=== PATIENT | male | born 1970 | race African-American/Black ===

== ENCOUNTER 2021-07-10 02:47 | Observation (INO) ==
[2021-07-10] MEDS ORDERED: ALUM/MAG/SIMETH/LIDO VISC 1:1 30 ML BOTTLE PO STA (03:02)
[2021-07-10] MEDS ORDERED: SODIUM CHLORIDE 0.9% 1,000 ML IV STA (03:02)
[2021-07-10] MEDS ORDERED: ONDANSETRON 4 MG/2 ML VIAL IV STA (03:02)
[2021-07-10] MEDS ORDERED: PANTOPRAZOLE 40 MG VIAL IV STA (03:02)
[2021-07-10 03:58] LABS: Basophils % 0.4 % (0.0-0.8); Eosinophils # 0.3 10*3/uL (0.0-0.87); Eosinophils % 6.4 % (0.00-10.9); Hematocrit 41.8 VOL% (42.0-52.0); Hemoglobin 13.9 GM/DL (14.0-18.0); Lymphocytes % 42.9 % (21.2-54.2); Mean Corpuscular HGB Conc 33.3 GM/DL (32-36); Mean Corpuscular Volume 88.4 FL (87-102); Monocytes # 0.2 10*3/uL (0.11-0.8); Monocytes % 5.1 % (1.7-12.7); Neutrophils % 45.2 % (38.7-73.9); Platelet Count 130 T/CUMM (130-400); Red Blood Count 4.73 MC/CUMM (3.8-5.5); Red Cell Distribution Width 16.2 % (9.3-17.3); White Blood Count 4.7 T/CUMM (4-12)
[2021-07-10 04:44] LABS: Bacteria,Urine Occasional /HPF (Few); RBC,Urine 1 /HPF (0-4)
[2021-07-10 04:45] LABS: Bilirubin,Urine Negative (Negative); Blood, Urine Trace mg/dL (Negative); Glucose,Urine (UA) Negative (Negative); Ketones,Urine Negative (Negative); Nitrite,Urine Negative (Negative); Protein,Urine Negative (Negative); Urine Appearance Clear (Clear); Urine Color Yellow (Yellow); Urine Urobilinogen 0.2 eU/dL (<2.0); Urine pH 5.5 (4.5-8.0)
[2021-07-10 05:15] LABS: Alanine Aminotransferase 40 U/L (16-61); Albumin 3.7 G/DL (3.4-5.0); Alkaline Phosphatase 112 U/L (45-117); Amylase 120 U/L (25-115); Aspartate Amino Transferase 79 U/L (0-37); Bilirubin,Total < 0.39 MG/DL (0.20-1.00); Blood Urea Nitrogen 7 MG/DL (7-18); Carbon Dioxide 30 MMOL/L (21-32); Chloride 110 MMOL/L (98-107); Estimated Glom Filtration Rate 135 ML/MIN; Glucose 96 MG/DL (74-106); Osmolality,Calculated 285.7 MOS/KG (273-304); Potassium 4.5 MMOL/L (3.5-5.1); Sodium 145 MMOL/L (136-145); Total Protein 8.1 G/DL (6.4-8.2)
[2021-07-10] MEDS ORDERED: DEXTROSE 10% 250 ML BAG IV PRN (05:46)
[2021-07-10] MEDS ORDERED: GLUCAGON 1 MG VIAL IM PRN (05:46)
[2021-07-10] MEDS ORDERED: LORazepam 2 MG/1 ML VIAL IV PRN (05:51)
[2021-07-10] MEDS: CLINDAMYCIN 300 MG CAPSULE PO SCH ×4 (06:03→23:50)
[2021-07-10] MEDS: LACTATED RINGERS 1,000 ML IV SCH ×3 (06:26→23:50)
[2021-07-10 06:27] LABS: Barbiturates Screen,Urine Negative (Negative); Benzodiazepines Screen,Urine Negative (Negative); Cannabinoid Screen,Urine Negative (Negative); Opiate Screen,Urine Negative (Negative); Phencyclidine Screen,Urine Negative (Negative)
[2021-07-10] MEDS: THIAMINE 100 MG TABLET PO SCH (09:27)
[2021-07-10] MEDS: FOLIC ACID 1 MG TABLET PO SCH (09:27)
[2021-07-10] MEDS ORDERED: MAGNESIUM CITRATE 300 ML BOTTLE PO ONE (10:30)
[2021-07-10] MEDS: ENOXAPARIN 40 MG/0.4 ML SYRINGE SUBCUT SCH (20:35)
[2021-07-10] MEDS: ONDANSETRON 4 MG/2 ML VIAL IV PRN (22:17)
[2021-07-11] MEDS: ACETAMINOPHEN 325 MG TABLET PO PRN ×2 (04:31→21:46)
[2021-07-11 05:17] LABS: Basophils % 0.4 % (0.0-0.8); Eosinophils % 1.5 % (0.00-10.9); Hematocrit 34.2 VOL% (42.0-52.0); Hemoglobin 11.3 GM/DL (14.0-18.0); Lymphocytes # 0.8 10*3/uL (1.4-4.0); Lymphocytes % 30.2 % (21.2-54.2); Mean Corpuscular Volume 88.1 FL (87-102); Mean Platelet Volume 10.9 FL (9.6-12.0); Monocytes # 0.3 10*3/uL (0.11-0.8); Monocytes % 9.8 % (1.7-12.7); Neutrophils % 58.1 % (38.7-73.9); Platelet Count 100 T/CUMM (130-400); Red Blood Count 3.88 MC/CUMM (3.8-5.5); Red Cell Distribution Width 15.8 % (9.3-17.3); White Blood Count 2.8 T/CUMM (4-12)
[2021-07-11] MEDS: CLINDAMYCIN 300 MG CAPSULE PO SCH ×3 (05:55→17:26)
[2021-07-11] MEDS: ONDANSETRON 4 MG/2 ML VIAL IV PRN ×2 (05:56→12:00)
[2021-07-11] MEDS: LACTATED RINGERS 1,000 ML IV SCH ×3 (05:58→21:03)
[2021-07-11 05:59] LABS: Calcium 8.7 MG/DL (8.5-10.1); Osmolality,Calculated 277.3 MOS/KG (273-304); Potassium 3.9 MMOL/L (3.5-5.1); Risk Ratio 1.55
[2021-07-11] MEDS ORDERED: PANTOPRAZOLE 40 MG VIAL IV SCH (09:00)
[2021-07-11] MEDS: hydrALAZINE 20 MG/1 ML VIAL IV PRN ×2 (09:12→18:01)
[2021-07-11] MEDS: FOLIC ACID 1 MG TABLET PO SCH (09:13)
[2021-07-11] MEDS: amLODIPine 5 MG TABLET PO SCH (09:14)
[2021-07-11] MEDS: THIAMINE 100 MG TABLET PO SCH (09:14)
[2021-07-11] MEDS ORDERED: PROMETHAZINE 25 MG/1 ML VIAL IM ONE (14:32)
[2021-07-11] MEDS ORDERED: PROMETHAZINE 25 MG/1 ML VIAL IM PRN (14:49)
[2021-07-11] MEDS: ENOXAPARIN 40 MG/0.4 ML SYRINGE SUBCUT SCH (21:04)
[2021-07-12] MEDS: CLINDAMYCIN 300 MG CAPSULE PO SCH ×3 (01:10→12:16)
[2021-07-12] MEDS: LACTATED RINGERS 1,000 ML IV SCH ×2 (03:44→10:37)
[2021-07-12 05:10] LABS: Basophils % 0.3 % (0.0-0.8); Eosinophils # 0.1 10*3/uL (0.0-0.87); Eosinophils % 3.9 % (0.00-10.9); Hematocrit 34.5 VOL% (42.0-52.0); Hemoglobin 11.3 GM/DL (14.0-18.0); Immature Granulocytes % 0.3 %; Immature Granulocytes Absolute 0.01 #; Lymphocytes # 1.2 10*3/uL (1.4-4.0); Lymphocytes % 33.8 % (21.2-54.2); Mean Corpuscular HGB Conc 32.8 GM/DL (32-36); Mean Corpuscular Volume 89.4 FL (87-102); Mean Platelet Volume 11.5 FL (9.6-12.0); Monocytes # 0.4 10*3/uL (0.11-0.8); Monocytes % 9.8 % (1.7-12.7); Neutrophils % 51.9 % (38.7-73.9); Platelet Count 89 T/CUMM (130-400); Red Blood Count 3.86 MC/CUMM (3.8-5.5); Red Cell Distribution Width 15.8 % (9.3-17.3); White Blood Count 3.6 T/CUMM (4-12)
[2021-07-12 05:25] LABS: Calcium 8.2 MG/DL (8.5-10.1); Osmolality,Calculated 272.5 MOS/KG (273-304); Potassium 3.6 MMOL/L (3.5-5.1)
[2021-07-12 06:05] LABS: Platelet Estimate Decreased; Target Cells 1+
[2021-07-12] MEDS ORDERED: PANTOPRAZOLE 40 MG TABLET PO SCH (06:30)
[2021-07-12] MEDS: amLODIPine 5 MG TABLET PO SCH (09:23)
[2021-07-12] MEDS: FOLIC ACID 1 MG TABLET PO SCH (09:24)
[2021-07-12] MEDS: THIAMINE 100 MG TABLET PO SCH (09:24)
[2021-07-12] MEDS: ONDANSETRON 4 MG/2 ML VIAL IV PRN (10:32)
[2021-07-12 12:12] VITALS: BP 188/87
== END 2021-07-12 12:26 | disposition home or self-care (01) ==
LOC: SUATTDRO → N.ED 02:47 → N.EDINP 02:47 → N.5E 12:02
PROVIDERS: ADMIT Internal Medicine Geriatric Medicine; ATTEND Internal Medicine Geriatric Medicine

== ENCOUNTER 2021-07-21 13:40 | Inpatient (IN) ==
[2021-07-21] MEDS ORDERED: ALUM/MAG/SIMETH/LIDO VISC 1:1 30 ML BOTTLE PO STA (14:10)
[2021-07-21 15:04] LABS: Basophils % 0.5 % (0.0-0.8); Eosinophils % 0.5 % (0.00-10.9); Hematocrit 33.7 VOL% (42.0-52.0); Hemoglobin 11.2 GM/DL (14.0-18.0); Immature Granulocytes % 0.3 %; Immature Granulocytes Absolute 0.01 #; Lymphocytes % 25.6 % (21.2-54.2); Mean Corpuscular HGB Conc 33.2 GM/DL (32-36); Mean Corpuscular Volume 87.5 FL (87-102); Monocytes # 0.3 10*3/uL (0.11-0.8); Monocytes % 8.6 % (1.7-12.7); Neutrophils % 64.5 % (38.7-73.9); Platelet Count 85 T/CUMM (130-400); Red Blood Count 3.85 MC/CUMM (3.8-5.5); Red Cell Distribution Width 15.3 % (9.3-17.3); White Blood Count 3.8 T/CUMM (4-12)
[2021-07-21 15:35] LABS: Calcium 7.8 MG/DL (8.5-10.1); Osmolality,Calculated 283.4 MOS/KG (273-304); Potassium 3.8 MMOL/L (3.5-5.1)
[2021-07-21 15:44] LABS: Anisocytosis 1+; Hypochromia 2+
[2021-07-21 15:45] LABS: Ovalocytes Slight; Target Cells Few
[2021-07-21 15:46] LABS: Platelet Estimate Decreased
[2021-07-21] MEDS ORDERED: SODIUM CHLORIDE 0.9% 1,000 ML IV STA (15:50)
[2021-07-21] MEDS ORDERED: GLUCAGON 1 MG VIAL IM PRN (16:38)
[2021-07-21] MEDS ORDERED: LORazepam 2 MG/1 ML VIAL IV PRN (16:38)
[2021-07-21 16:41] LABS: Barbiturates Screen,Urine Negative (Negative); Benzodiazepines Screen,Urine Negative (Negative); Cannabinoid Screen,Urine Negative (Negative); Opiate Screen,Urine Negative (Negative); Phencyclidine Screen,Urine Negative (Negative)
[2021-07-21] MEDS ORDERED: hydrALAZINE 20 MG/1 ML VIAL IV PRN (16:52)
[2021-07-21] MEDS ORDERED: DEXTROSE 10% 250 ML BAG IV PRN (16:54)
[2021-07-21] MEDS ORDERED: FOLIC ACID IV SCH ×2 (17:00→18:00)
[2021-07-21] MEDS ORDERED: THIAMINE IV SCH ×2 (17:00→18:00)
[2021-07-21] MEDS ORDERED: MULTIVITAMIN IV SCH ×2 (17:00→18:00)
[2021-07-21] MEDS ORDERED: [UNRECOGNIZED DRUG - OTHER] IV SCH (17:00)
[2021-07-21] MEDS: PANTOPRAZOLE 40 MG VIAL IV SCH (17:50)
[2021-07-21] MEDS: NICOTINE 21 MG/24 HR PATCH TRANSDERM SCH (17:57)
[2021-07-21] MEDS: SODIUM CHLORIDE 0.9% 1,000 ML IV SCH (17:58)
[2021-07-21] MEDS ORDERED: [UNRECOGNIZED DRUG - OTHER] IV SCH (18:00)
[2021-07-21] MEDS: MORPHINE 2 MG/1 ML SYRINGE IV PRN (20:50)
[2021-07-22] MEDS: ONDANSETRON 4 MG/2 ML VIAL IV PRN ×3 (01:21→21:10)
[2021-07-22 06:22] LABS: Eosinophils % 0.9 % (0.00-10.9); Hematocrit 33.1 VOL% (42.0-52.0); Hemoglobin 10.9 GM/DL (14.0-18.0); Immature Granulocytes % 0.5 %; Immature Granulocytes Absolute 0.01 #; Lymphocytes # 0.7 10*3/uL (1.4-4.0); Lymphocytes % 32.6 % (21.2-54.2); Mean Corpuscular HGB Conc 32.9 GM/DL (32-36); Mean Corpuscular Volume 88.7 FL (87-102); Mean Platelet Volume 11.2 FL (9.6-12.0); Monocytes # 0.2 10*3/uL (0.11-0.8); Monocytes % 10.9 % (1.7-12.7); Neutrophils % 55.1 % (38.7-73.9); Platelet Count 63 T/CUMM (130-400); Red Blood Count 3.73 MC/CUMM (3.8-5.5); Red Cell Distribution Width 15.3 % (9.3-17.3); White Blood Count 2.2 T/CUMM (4-12)
[2021-07-22 06:39] LABS: Bilirubin,Total 0.6 MG/DL (0.20-1.00); Calcium 8.3 MG/DL (8.5-10.1); Osmolality,Calculated 275.4 MOS/KG (273-304); Potassium 4.2 MMOL/L (3.5-5.1); Total Protein 7.2 G/DL (6.4-8.2)
[2021-07-22 06:44] LABS: Platelet Estimate Decreased
[2021-07-22] MEDS ORDERED: SODIUM CHLORIDE 0.9% 1,000 ML IV ONE (08:37)
[2021-07-22] MEDS ORDERED: amLODIPine 5 MG TABLET PO SCH (09:00)
[2021-07-22] MEDS: FOLIC ACID 1 MG TABLET PO SCH (09:10)
[2021-07-22] MEDS: THIAMINE 100 MG TABLET PO SCH (09:10)
[2021-07-22] MEDS: PANTOPRAZOLE 40 MG VIAL IV SCH (09:11)
[2021-07-22] MEDS: MORPHINE 2 MG/1 ML SYRINGE IV PRN (09:12)
[2021-07-22] MEDS: NICOTINE 21 MG/24 HR PATCH TRANSDERM SCH (09:12)
[2021-07-22] MEDS: MULTIVITAMIN (CENTRUM) TABLET PO SCH (16:51)
[2021-07-22] MEDS: chlordiazePOXIDE 25 MG CAPSULE PO SCH ×3 (17:59→21:11)
[2021-07-22] MEDS: SODIUM CHLORIDE 0.9% 1,000 ML IV SCH ×2 (18:00→21:12)
[2021-07-23 05:32] LABS: Basophils % 0.4 % (0.0-0.8); Eosinophils # 0.1 10*3/uL (0.0-0.87); Eosinophils % 3.5 % (0.00-10.9); Hematocrit 35.7 VOL% (42.0-52.0); Hemoglobin 11.8 GM/DL (14.0-18.0); Lymphocytes # 0.7 10*3/uL (1.4-4.0); Lymphocytes % 27.3 % (21.2-54.2); Mean Corpuscular HGB Conc 33.1 GM/DL (32-36); Mean Corpuscular Volume 88.1 FL (87-102); Mean Platelet Volume 11.4 FL (9.6-12.0); Monocytes # 0.2 10*3/uL (0.11-0.8); Monocytes % 9.4 % (1.7-12.7); Neutrophils % 59.4 % (38.7-73.9); Platelet Count 54 T/CUMM (130-400); Red Blood Count 4.05 MC/CUMM (3.8-5.5); Red Cell Distribution Width 15.1 % (9.3-17.3); White Blood Count 2.6 T/CUMM (4-12)
[2021-07-23] MEDS: SODIUM CHLORIDE 0.9% 1,000 ML IV SCH ×3 (05:38→15:31)
[2021-07-23 06:01] LABS: Albumin 3.1 G/DL (3.4-5.0); Bilirubin,Total 0.9 MG/DL (0.20-1.00); Calcium 8.8 MG/DL (8.5-10.1); Osmolality,Calculated 273.5 MOS/KG (273-304)
[2021-07-23] MEDS: POTASSIUM CHLORIDE RIDER 10 MEQ/100 ML PREMIX IV SCH ×4 (09:17→15:28)
[2021-07-23] MEDS: MULTIVITAMIN (CENTRUM) TABLET PO SCH (09:20)
[2021-07-23] MEDS: chlordiazePOXIDE 25 MG CAPSULE PO SCH ×3 (09:20→21:18)
[2021-07-23] MEDS: FOLIC ACID 1 MG TABLET PO SCH (09:21)
[2021-07-23] MEDS: amLODIPine 10 MG TABLET PO SCH (09:21)
[2021-07-23] MEDS: THIAMINE 100 MG TABLET PO SCH (09:21)
[2021-07-23] MEDS: NICOTINE 21 MG/24 HR PATCH TRANSDERM SCH (09:27)
[2021-07-23] MEDS ORDERED: POTASSIUM CHLORIDE RIDER 10 MEQ/100 ML PREMIX IV SCH (15:00)
[2021-07-23 15:51] LABS: % CD4 (T Cells) 39 % (32-64); % CD8 (T Cells) 48 % (11-40); 4/8 Ratio 0.8 (>=0.9)
[2021-07-23] MEDS: MORPHINE 2 MG/1 ML SYRINGE IV PRN (23:23)
[2021-07-24] MEDS: SODIUM CHLORIDE 0.9% 1,000 ML IV SCH ×2 (00:45→10:16)
[2021-07-24 05:47] LABS: Basophils % 0.3 % (0.0-0.8); Eosinophils # 0.1 10*3/uL (0.0-0.87); Hematocrit 39.1 VOL% (42.0-52.0); Immature Granulocytes % 0.3 %; Immature Granulocytes Absolute 0.01 #; Lymphocytes # 1.2 10*3/uL (1.4-4.0); Lymphocytes % 39.3 % (21.2-54.2); Mean Corpuscular HGB Conc 33.2 GM/DL (32-36); Mean Corpuscular Volume 87.9 FL (87-102); Mean Platelet Volume 9.7 FL (9.6-12.0); Monocytes # 0.3 10*3/uL (0.11-0.8); Monocytes % 8.3 % (1.7-12.7); Neutrophils % 48.8 % (38.7-73.9); Platelet Count 54 T/CUMM (130-400); Red Blood Count 4.45 MC/CUMM (3.8-5.5); Red Cell Distribution Width 14.6 % (9.3-17.3)
[2021-07-24 06:01] LABS: Albumin 3.1 G/DL (3.4-5.0); Bilirubin,Total 0.8 MG/DL (0.20-1.00); Calcium 8.5 MG/DL (8.5-10.1); Osmolality,Calculated 271.7 MOS/KG (273-304); Potassium 3.3 MMOL/L (3.5-5.1); Total Protein 7.4 G/DL (6.4-8.2)
[2021-07-24 06:03] LABS: Target Cells Slight
[2021-07-24 06:04] LABS: Microcytosis Slight
[2021-07-24 06:06] LABS: Ovalocytes Slight; Platelet Estimate Decreased
[2021-07-24] MEDS ORDERED: MAGNESIUM SULF RIDER 2 GM/50 ML PREMIX IV PRN (07:32)
[2021-07-24] MEDS ORDERED: MAGNESIUM SULF RIDER 4 GM/100 ML PREMIX IV PRN (07:32)
[2021-07-24] MEDS ORDERED: POTASSIUM CHLORIDE RIDER 10 MEQ/100 ML PREMIX IV PRN (07:32)
[2021-07-24] MEDS: MORPHINE 2 MG/1 ML SYRINGE IV PRN (10:12)
[2021-07-24] MEDS: THIAMINE 100 MG TABLET PO SCH (13:07)
[2021-07-24] MEDS: MULTIVITAMIN (CENTRUM) TABLET PO SCH (13:08)
[2021-07-24] MEDS: FOLIC ACID 1 MG TABLET PO SCH (13:08)
[2021-07-24 13:30] VITALS: BP 147/103
[2021-07-24] MEDS: NICOTINE 21 MG/24 HR PATCH TRANSDERM SCH (13:59)
[2021-07-24] MEDS: chlordiazePOXIDE 25 MG CAPSULE PO SCH (13:59)
[2021-07-24] MEDS: amLODIPine 10 MG TABLET PO SCH (14:00)
== END 2021-07-24 14:27 | disposition home or self-care (01) | DRG 439 ==
LOC: N.ED 13:40 → N.EDINP 13:40 → N.5E 17:20 → SUATTDRO 07-22 15:57
PROVIDERS: ADMIT Internal Medicine; ATTEND Internal Medicine

== ENCOUNTER 2021-08-03 16:39 | Inpatient (IN) ==
[2021-08-03] MEDS ORDERED: SODIUM CHLORIDE 0.9% 1,000 ML IV STA (17:05)
[2021-08-03] MEDS ORDERED: PANTOPRAZOLE 40 MG VIAL IV STA (17:05)
[2021-08-03] MEDS ORDERED: ONDANSETRON 4 MG/2 ML VIAL IV STA (17:05)
[2021-08-03 18:02] LABS: Basophils # 0.1 10*3/uL (0.0-0.2); Basophils % 1.1 % (0.0-0.8); Eosinophils # 0.1 10*3/uL (0.0-0.87); Eosinophils % 2.2 % (0.00-10.9); Hematocrit 38.7 VOL% (42.0-52.0); Hemoglobin 12.4 GM/DL (14.0-18.0); Immature Granulocytes % 0.2 %; Immature Granulocytes Absolute 0.01 #; Lymphocytes % 44.1 % (21.2-54.2); Mean Corpuscular Volume 92.6 FL (87-102); Mean Platelet Volume 8.6 FL (9.6-12.0); Monocytes # 0.3 10*3/uL (0.11-0.8); Monocytes % 6.9 % (1.7-12.7); Neutrophils % 45.5 % (38.7-73.9); Platelet Count 296 T/CUMM (130-400); Red Blood Count 4.18 MC/CUMM (3.8-5.5); Red Cell Distribution Width 16.2 % (9.3-17.3); White Blood Count 4.6 T/CUMM (4-12)
[2021-08-03 18:11] LABS: Albumin 3.8 G/DL (3.4-5.0); Bilirubin,Total 0.4 MG/DL (0.20-1.00); Osmolality,Calculated 280.3 MOS/KG (273-304); Potassium 4.7 MMOL/L (3.5-5.1); Total Protein 8.1 G/DL (6.4-8.2)
[2021-08-03] MEDS ORDERED: hydrALAZINE 20 MG/1 ML VIAL IV PRN (20:14)
[2021-08-03] MEDS ORDERED: GLUCAGON 1 MG VIAL IM PRN (20:14)
[2021-08-03] MEDS ORDERED: NICOTINE 21 MG/24 HR PATCH TRANSDERM PRN (20:14)
[2021-08-03] MEDS ORDERED: LORazepam 2 MG/1 ML VIAL IV PRN (20:16)
[2021-08-03] MEDS ORDERED: DEXTROSE 10% 250 ML BAG IV PRN (20:19)
[2021-08-03 21:10] LABS: % Iron Saturation 7.8 % (18-50)
[2021-08-03 21:16] LABS: Folate 21.26 NG/ML (5.38-24.0)
[2021-08-03] MEDS: PANTOPRAZOLE 40 MG VIAL IV SCH (22:38)
[2021-08-03] MEDS: ENOXAPARIN 40 MG/0.4 ML SYRINGE SUBCUT SCH (22:40)
[2021-08-03] MEDS: LACTATED RINGERS 1,000 ML IV SCH (23:10)
[2021-08-03] MEDS: MORPHINE 2 MG/1 ML SYRINGE IV PRN (23:16)
[2021-08-04 05:50] LABS: Basophils # 0.1 10*3/uL (0.0-0.2); Basophils % 1.5 % (0.0-0.8); Eosinophils # 0.1 10*3/uL (0.0-0.87); Eosinophils % 1.9 % (0.00-10.9); Hematocrit 37.5 VOL% (42.0-52.0); Hemoglobin 12.1 GM/DL (14.0-18.0); Immature Granulocytes % 0.2 %; Immature Granulocytes Absolute 0.01 #; Lymphocytes # 1.3 10*3/uL (1.4-4.0); Lymphocytes % 31.1 % (21.2-54.2); Mean Corpuscular HGB Conc 32.3 GM/DL (32-36); Mean Corpuscular Volume 92.4 FL (87-102); Mean Platelet Volume 8.9 FL (9.6-12.0); Monocytes # 0.4 10*3/uL (0.11-0.8); Neutrophils % 56.3 % (38.7-73.9); Platelet Count 279 T/CUMM (130-400); Red Blood Count 4.06 MC/CUMM (3.8-5.5); White Blood Count 4.1 T/CUMM (4-12)
[2021-08-04 06:22] LABS: Albumin 3.4 G/DL (3.4-5.0); Bilirubin,Total 0.4 MG/DL (0.20-1.00); Calcium 8.5 MG/DL (8.5-10.1); Osmolality,Calculated 280.3 MOS/KG (273-304); Risk Ratio 1.65; Total Protein 7.8 G/DL (6.4-8.2); VLDL Cholesterol 41.6 MG/DL
[2021-08-04] MEDS: LACTATED RINGERS 1,000 ML IV SCH ×3 (07:13→22:43)
[2021-08-04 08:29] LABS: Bilirubin,Urine Negative (Negative); Blood, Urine Small mg/dL (Negative); Glucose,Urine (UA) Negative (Negative); Ketones,Urine Negative (Negative); Nitrite,Urine Negative (Negative); Protein,Urine Negative (Negative); Urine Appearance Clear (Clear); Urine Color Yellow (Yellow); Urine Specific Gravity >= 1.030 (1.001-1.035); Urine Urobilinogen 0.2 eU/dL (<2.0); Urine pH 5.5 (4.5-8.0)
[2021-08-04 08:31] LABS: Mucus,Urine Occasional /LPF (Occasional); Squamous Epithelial Cell,Urine Occasional /HPF (0-10)
[2021-08-04 08:40] LABS: Barbiturates Screen,Urine Negative (Negative); Benzodiazepines Screen,Urine Positive (Negative); Cannabinoid Screen,Urine Negative (Negative); Opiate Screen,Urine Positive (Negative); Phencyclidine Screen,Urine Negative (Negative)
[2021-08-04] MEDS: PANTOPRAZOLE 40 MG VIAL IV SCH ×2 (08:43→20:30)
[2021-08-04] MEDS: MORPHINE 2 MG/1 ML SYRINGE IV PRN ×3 (10:21→20:31)
[2021-08-04] MEDS: CHOLECALCIFEROL 5,000 UNIT TABLET PO SCH (13:58)
[2021-08-04] MEDS: ENOXAPARIN 40 MG/0.4 ML SYRINGE SUBCUT SCH (20:28)
[2021-08-04] MEDS ORDERED: ATORVASTATIN 10 MG TABLET PO SCH (21:00)
[2021-08-05 05:36] LABS: Basophils % 0.3 % (0.0-0.8); Eosinophils % 1.1 % (0.00-10.9); Lymphocytes # 0.7 10*3/uL (1.4-4.0); Lymphocytes % 20.3 % (21.2-54.2); Mean Corpuscular HGB Conc 33.3 GM/DL (32-36); Mean Corpuscular Volume 89.7 FL (87-102); Mean Platelet Volume 9.2 FL (9.6-12.0); Monocytes # 0.4 10*3/uL (0.11-0.8); Neutrophils % 66.3 % (38.7-73.9); Platelet Count 207 T/CUMM (130-400); Red Blood Count 3.68 MC/CUMM (3.8-5.5); Red Cell Distribution Width 14.7 % (9.3-17.3); White Blood Count 3.5 T/CUMM (4-12)
[2021-08-05] MEDS: ONDANSETRON 4 MG/2 ML VIAL IV PRN ×2 (05:40→09:51)
[2021-08-05 05:57] LABS: Albumin 2.9 G/DL (3.4-5.0); Bilirubin,Total 0.7 MG/DL (0.20-1.00); Calcium 8.8 MG/DL (8.5-10.1); Potassium 3.9 MMOL/L (3.5-5.1); Total Protein 6.6 G/DL (6.4-8.2)
[2021-08-05] MEDS: LACTATED RINGERS 1,000 ML IV SCH (06:37)
[2021-08-05] MEDS: CHOLECALCIFEROL 5,000 UNIT TABLET PO SCH (09:50)
[2021-08-05] MEDS: PANTOPRAZOLE 40 MG VIAL IV SCH (09:50)
[2021-08-05 12:04] VITALS: BP 182/93
[2021-08-06 16:41] LABS: % CD4 (T Cells) 37 % (32-64); % CD8 (T Cells) 40 % (11-40); 4/8 Ratio 0.9 (>=0.9)
== END 2021-08-05 12:46 | disposition home or self-care (01) | DRG 440 ==
LOC: EDUNIT# → EDBD → N.ED 16:39 → N.5E 20:13
PROVIDERS: ADMIT Internal Medicine; ATTEND Internal Medicine

== ENCOUNTER 2021-08-07 04:53 | Inpatient (IN) ==
[2021-08-07] MEDS ORDERED: NOREPINEPHRINE 4 MG/4 ML VIAL IV ONE (05:17)
[2021-08-07] MEDS ORDERED: DIPH/TET/ACEL PERT BOOSTER VACCINE 0.5 ML VIAL IM ONE (05:36)
[2021-08-07] MEDS ORDERED: LACTATED RINGERS 1,000 ML IV STA (05:36)
[2021-08-07 05:40] LABS: ABG Base Excess -3.1 MMOL/L (-2.5-2.5); ABG HCO3 21.8 MMOL/L (20-26); ABG PCO2 39.4 MM HG (35-48); ABG PH 7.356 (7.35-7.45); ABG TCO2 20.8 MMOL/L (23-27)
[2021-08-07] MEDS ORDERED: ETOMIDATE 20 MG/10 ML VIAL IV ONE (05:40)
[2021-08-07] MEDS ORDERED: VECURONIUM 10 MG VIAL IV ONE (05:40)
[2021-08-07 05:44] LABS: Eosinophils # 0.1 10*3/uL (0.0-0.87); Eosinophils % 2.4 % (0.00-10.9); Hematocrit 34.8 VOL% (42.0-52.0); Hemoglobin 11.1 GM/DL (14.0-18.0); Immature Granulocytes % 0.2 %; Immature Granulocytes Absolute 0.01 #; Lymphocytes # 2.3 10*3/uL (1.4-4.0); Lymphocytes % 55.4 % (21.2-54.2); Mean Corpuscular HGB Conc 31.9 GM/DL (32-36); Mean Corpuscular Volume 92.6 FL (87-102); Mean Platelet Volume 10.3 FL (9.6-12.0); Monocytes # 0.3 10*3/uL (0.11-0.8); Monocytes % 7.2 % (1.7-12.7); Neutrophils % 33.8 % (38.7-73.9); Platelet Count 220 T/CUMM (130-400); Red Blood Count 3.76 MC/CUMM (3.8-5.5); Red Cell Distribution Width 15.8 % (9.3-17.3); White Blood Count 4.2 T/CUMM (4-12)
[2021-08-07] MEDS ORDERED: niCARdipine 25 MG/10 ML VIAL IV ONE (05:54)
[2021-08-07 06:08] LABS: Alanine Aminotransferase 42 U/L (16-61); Albumin 3.6 G/DL (3.4-5.0); Alkaline Phosphatase 80 U/L (45-117); Amylase 169 U/L (25-115); Aspartate Amino Transferase 69 U/L (0-37); Atypical Lymphocytes Few; Bilirubin,Total < 0.39 MG/DL (0.20-1.00); Blood Urea Nitrogen 7 MG/DL (7-18); Calcium 7.9 MG/DL (8.5-10.1); Carbon Dioxide 30 MMOL/L (21-32); Chloride 111 MMOL/L (98-107); Eosinophils 3 % (0-10); Glucose 103 MG/DL (74-106); Lymphocytes 51 % (20-55); Microcytosis 1+; Osmolality,Calculated 283.8 MOS/KG (273-304); Potassium 4.4 MMOL/L (3.5-5.1); Sodium 144 MMOL/L (136-145); Total Cells Counted 100; Total Protein 8.2 G/DL (6.4-8.2)
[2021-08-07 06:09] LABS: Platelet Estimate Normal
[2021-08-07] MEDS: fentaNYL INJ 1,250 MCG in SODIUM CHLORIDE 0.9% 225 ML IV PRN ×6 (07:10→09:37)
[2021-08-07] MEDS ORDERED: ROCURONIUM 100 MG/10 ML VIAL IV ONE (07:40)
[2021-08-07 08:41] LABS: Mucus,Urine Occasional /LPF (Occasional); RBC,Urine 1 /HPF (0-4); Urine Color Light Yellow (Yellow)
[2021-08-07 08:42] LABS: Bilirubin,Urine Negative (Negative); Blood, Urine Trace mg/dL (Negative); Glucose,Urine (UA) Negative (Negative); Ketones,Urine Negative (Negative); Nitrite,Urine Negative (Negative); Protein,Urine Negative (Negative); Urine Appearance Clear (Clear); Urine Urobilinogen 0.2 eU/dL (<2.0)
[2021-08-07 08:54] LABS: Barbiturates Screen,Urine Negative (Negative); Benzodiazepines Screen,Urine Negative (Negative); Cannabinoid Screen,Urine Negative (Negative); Opiate Screen,Urine Negative (Negative); Phencyclidine Screen,Urine Negative (Negative)
[2021-08-07] MEDS ORDERED: ONDANSETRON 4 MG/2 ML VIAL IV PRN (10:01)
[2021-08-07] MEDS ORDERED: ACETAMINOPHEN 325 MG TABLET PO PRN (10:01)
[2021-08-07] MEDS ORDERED: HYDROmorphone 1 MG/1 ML SYRINGE IV PRN (10:01)
[2021-08-07] MEDS ORDERED: SODIUM CHLORIDE 0.9% 1,000 ML IV STA (10:03)
[2021-08-07] MEDS ORDERED: NICOTINE 21 MG/24 HR PATCH TRANSDERM PRN (10:04)
[2021-08-07 10:34] VITALS: BP 142/98
[2021-08-07] MEDS: LACTATED RINGERS 1,000 ML IV SCH ×2 (11:09→21:02)
[2021-08-07] MEDS: HYDROmorphone 1 MG/1 ML SYRINGE IV PRN ×3 (17:00→23:38)
[2021-08-07] MEDS: LORazepam 2 MG/1 ML VIAL IV PRN (23:51)
[2021-08-08 04:14] LABS: Basophils % 0.3 % (0.0-0.8); Eosinophils # 0.1 10*3/uL (0.0-0.87); Eosinophils % 1.3 % (0.00-10.9); Hematocrit 24.6 VOL% (42.0-52.0); Hemoglobin 7.9 GM/DL (14.0-18.0); Immature Granulocytes % 0.3 %; Immature Granulocytes Absolute 0.02 #; Lymphocytes # 1.5 10*3/uL (1.4-4.0); Mean Corpuscular HGB Conc 32.1 GM/DL (32-36); Mean Corpuscular Volume 93.5 FL (87-102); Mean Platelet Volume 9.8 FL (9.6-12.0); Monocytes # 0.5 10*3/uL (0.11-0.8); Neutrophils % 67.1 % (38.7-73.9); Platelet Count 127 T/CUMM (130-400); Red Blood Count 2.63 MC/CUMM (3.8-5.5); Red Cell Distribution Width 14.9 % (9.3-17.3); White Blood Count 6.4 T/CUMM (4-12)
[2021-08-08 04:48] LABS: Albumin 2.9 G/DL (3.4-5.0); Bilirubin,Total 0.6 MG/DL (0.20-1.00); Calcium 8.2 MG/DL (8.5-10.1); Osmolality,Calculated 276.4 MOS/KG (273-304); Total Protein 6.3 G/DL (6.4-8.2)
[2021-08-08] MEDS: ENOXAPARIN 40 MG/0.4 ML SYRINGE SUBCUT SCH (05:31)
[2021-08-08] MEDS: HYDROmorphone 1 MG/1 ML SYRINGE IV PRN ×3 (05:31→13:20)
[2021-08-08] MEDS: LACTATED RINGERS 1,000 ML IV SCH ×3 (05:32→23:07)
[2021-08-08] MEDS: LORazepam 2 MG/1 ML VIAL IV PRN (07:46)
[2021-08-08] MEDS: PANTOPRAZOLE 40 MG VIAL IV SCH (09:32)
[2021-08-08] MEDS: chlordiazePOXIDE 10 MG CAPSULE PO SCH ×3 (09:43→20:03)
[2021-08-08] MEDS: KETOROLAC 30 MG/1 ML VIAL IV PRN (19:55)
[2021-08-09] MEDS: KETOROLAC 30 MG/1 ML VIAL IV PRN (01:26)
[2021-08-09] MEDS: ENOXAPARIN 40 MG/0.4 ML SYRINGE SUBCUT SCH (05:58)
[2021-08-09] MEDS: LACTATED RINGERS 1,000 ML IV SCH ×2 (08:29→15:38)
[2021-08-09] MEDS: chlordiazePOXIDE 10 MG CAPSULE PO SCH ×2 (08:30→15:38)
[2021-08-09] MEDS: PANTOPRAZOLE 40 MG VIAL IV SCH (08:30)
[2021-08-09] MEDS: HYDROmorphone 1 MG/1 ML SYRINGE IV PRN (08:30)
[2021-08-09] MEDS ORDERED: amLODIPine 10 MG TABLET PO SCH (09:00)
== END 2021-08-09 15:17 | disposition home or self-care (01) | DRG 89 ==
LOC: EDBD → EDUNIT# → N.ED 04:53 → N.EDINP 10:01 → N.CC 10:38
PROVIDERS: ADMIT Surgery; ATTEND Surgery

== ENCOUNTER 2021-08-10 12:38 | Observation (INO) ==
[2021-08-10 21:02] LABS: Basophils % 0.5 % (0.0-0.8); Eosinophils # 0.2 10*3/uL (0.0-0.87); Eosinophils % 4.1 % (0.00-10.9); Hematocrit 20.4 VOL% (42.0-52.0); Hemoglobin 6.6 GM/DL (14.0-18.0); Immature Granulocytes % 0.3 %; Immature Granulocytes Absolute 0.01 #; Lymphocytes # 1.1 10*3/uL (1.4-4.0); Lymphocytes % 29.1 % (21.2-54.2); Mean Corpuscular HGB Conc 32.4 GM/DL (32-36); Mean Corpuscular Volume 90.7 FL (87-102); Mean Platelet Volume 9.3 FL (9.6-12.0); Monocytes # 0.4 10*3/uL (0.11-0.8); Monocytes % 10.1 % (1.7-12.7); Neutrophils % 55.9 % (38.7-73.9); Platelet Count 143 T/CUMM (130-400); Red Blood Count 2.25 MC/CUMM (3.8-5.5); Red Cell Distribution Width 14.6 % (9.3-17.3); White Blood Count 3.7 T/CUMM (4-12)
[2021-08-10 21:20] LABS: Alanine Aminotransferase 24 U/L (16-61); Alkaline Phosphatase 56 U/L (45-117); Aspartate Amino Transferase 31 U/L (0-37); Bilirubin,Total < 0.39 MG/DL (0.20-1.00); Blood Urea Nitrogen 6 MG/DL (7-18); Calcium 8.3 MG/DL (8.5-10.1); Carbon Dioxide 28 MMOL/L (21-32); Chloride 107 MMOL/L (98-107); Glucose 92 MG/DL (74-106); Osmolality,Calculated 278.3 MOS/KG (273-304); Potassium 3.6 MMOL/L (3.5-5.1); Sodium 141 MMOL/L (136-145); Total Protein 6.7 G/DL (6.4-8.2)
[2021-08-10] MEDS ORDERED: ONDANSETRON 4 MG/2 ML VIAL IV PRN (22:27)
[2021-08-10] MEDS ORDERED: DEXTROSE 10% 250 ML BAG IV PRN (22:27)
[2021-08-10] MEDS ORDERED: GLUCAGON 1 MG VIAL IM PRN (22:27)
[2021-08-10 22:33] LABS: % Iron Saturation 4.5 % (18-50); Ferritin 34.9 ng/mL (26-388)
[2021-08-10] MEDS ORDERED: hydrALAZINE 20 MG/1 ML VIAL IV PRN (22:35)
[2021-08-10] MEDS ORDERED: PANTOPRAZOLE 40 MG VIAL IV ONE (22:35)
[2021-08-10] MEDS ORDERED: NICOTINE 21 MG/24 HR PATCH TRANSDERM PRN (22:35)
[2021-08-10 22:38] LABS: PT Patient Result 10.7 SECS (10.5-12.0); Partial Thromboplastin Time 23.5 SECS (23.8-32.1)
[2021-08-10] MEDS ORDERED: LORazepam 2 MG/1 ML VIAL IV PRN (22:41)
[2021-08-10] MEDS ORDERED: SODIUM CHLORIDE 0.9% 1,000 ML IV PRN (22:42)
[2021-08-11 04:06] LABS: Basophils % 0.6 % (0.0-0.8); Eosinophils # 0.2 10*3/uL (0.0-0.87); Eosinophils % 4.4 % (0.00-10.9); Hematocrit 24.2 VOL% (42.0-52.0); Hemoglobin 7.9 GM/DL (14.0-18.0); Immature Granulocytes % 0.3 %; Immature Granulocytes Absolute 0.01 #; Lymphocytes # 0.9 10*3/uL (1.4-4.0); Lymphocytes % 26.1 % (21.2-54.2); Mean Corpuscular HGB Conc 32.6 GM/DL (32-36); Mean Platelet Volume 9.5 FL (9.6-12.0); Monocytes # 0.4 10*3/uL (0.11-0.8); Monocytes % 10.3 % (1.7-12.7); Neutrophils % 58.3 % (38.7-73.9); Platelet Count 167 T/CUMM (130-400); Red Blood Count 2.69 MC/CUMM (3.8-5.5); Red Cell Distribution Width 14.8 % (9.3-17.3); White Blood Count 3.6 T/CUMM (4-12)
[2021-08-11 04:14] LABS: Calcium 8.3 MG/DL (8.5-10.1); Osmolality,Calculated 282.8 MOS/KG (273-304); Potassium 3.8 MMOL/L (3.5-5.1)
[2021-08-11 05:00] LABS: Free T4 (Free Thyroxine) 0.8 NG/DL (0.76-1.46)
[2021-08-11] MEDS: ACETAMINOPHEN 325 MG TABLET PO PRN ×2 (08:17→19:50)
[2021-08-11] MEDS: FOLIC ACID 1 MG TABLET PO SCH (08:45)
[2021-08-11] MEDS: THIAMINE 100 MG TABLET PO SCH ×2 (08:45→20:00)
[2021-08-11] MEDS: MULTIVITAMIN (BEROCCA) TABLET PO SCH (08:45)
[2021-08-11] MEDS: FERROUS SULFATE 325 MG TABLET PO SCH (08:45)
[2021-08-11] MEDS: PANTOPRAZOLE 40 MG VIAL IV SCH (09:07)
[2021-08-12] MEDS ORDERED: SODIUM CHLORIDE 0.9% 1,000 ML IV PRN (08:55)
[2021-08-12] MEDS: MULTIVITAMIN (BEROCCA) TABLET PO SCH (09:07)
[2021-08-12] MEDS: PANTOPRAZOLE 40 MG VIAL IV SCH (09:07)
[2021-08-12] MEDS: FERROUS SULFATE 325 MG TABLET PO SCH (09:07)
[2021-08-12] MEDS: FOLIC ACID 1 MG TABLET PO SCH (09:07)
[2021-08-12] MEDS: THIAMINE 100 MG TABLET PO SCH (09:07)
[2021-08-12] MEDS ORDERED: KETOROLAC 15 MG/1 ML VIAL IV ONE (10:30)
[2021-08-12 16:47] VITALS: BP 167/91
== END 2021-08-12 17:42 | disposition home or self-care (01) ==
LOC: N.EDINP 12:38 → N.ED 12:38 → SUATTDRO 22:27 → N.EDINP 08-11 10:39 → N.5E 08-11 11:15
PROVIDERS: ADMIT Internal Medicine; ATTEND Internal Medicine

== ENCOUNTER 2021-08-22 01:09 | Observation (INO) ==
[2021-08-22] MEDS ORDERED: PANTOPRAZOLE 40 MG VIAL IV STA (02:09)
[2021-08-22] MEDS ORDERED: ALUM/MAG/SIMETH/LIDO VISC 1:1 30 ML BOTTLE PO STA (02:09)
[2021-08-22] MEDS ORDERED: THIAMINE INJ 100 MG, FOLIC ACID INJ 1 MG, MAGNESIUM SULF INJ 2 GM, MULTIVITAMIN INJ 10 ... IV ONE (02:09)
[2021-08-22] MEDS ORDERED: ONDANSETRON 4 MG/2 ML VIAL IV STA (02:09)
[2021-08-22 02:55] LABS: Basophils % 0.8 % (0.0-0.8); Eosinophils # 0.1 10*3/uL (0.0-0.87); Eosinophils % 2.1 % (0.00-10.9); Hematocrit 30.2 VOL% (42.0-52.0); Hemoglobin 9.7 GM/DL (14.0-18.0); Immature Granulocytes % 0.2 %; Immature Granulocytes Absolute 0.01 #; Lymphocytes # 1.4 10*3/uL (1.4-4.0); Lymphocytes % 29.4 % (21.2-54.2); Mean Corpuscular HGB Conc 32.1 GM/DL (32-36); Mean Corpuscular Volume 88.8 FL (87-102); Mean Platelet Volume 8.8 FL (9.6-12.0); Monocytes # 0.3 10*3/uL (0.11-0.8); Neutrophils % 60.5 % (38.7-73.9); Platelet Count 143 T/CUMM (130-400); White Blood Count 4.7 T/CUMM (4-12)
[2021-08-22 02:58] LABS: Platelet Estimate Adequate
[2021-08-22 03:13] LABS: Alanine Aminotransferase 56 U/L (16-61); Alkaline Phosphatase 96 U/L (45-117); Amylase 139 U/L (25-115); Aspartate Amino Transferase 165 U/L (0-37); Bilirubin,Total < 0.39 MG/DL (0.20-1.00); Blood Urea Nitrogen 7 MG/DL (7-18); Calcium 7.8 MG/DL (8.5-10.1); Carbon Dioxide 24 MMOL/L (21-32); Chloride 112 MMOL/L (98-107); Glucose 131 MG/DL (74-106); Osmolality,Calculated 287.7 MOS/KG (273-304); Potassium 3.9 MMOL/L (3.5-5.1); Sodium 145 MMOL/L (136-145); Total Protein 7.3 G/DL (6.4-8.2)
[2021-08-22 03:23] LABS: Bacteria,Urine Occasional /HPF (Few); Mucus,Urine Occasional /LPF (Occasional)
[2021-08-22 03:25] LABS: Bilirubin,Urine Negative (Negative); Blood, Urine Negative (Negative); Glucose,Urine (UA) Negative (Negative); Ketones,Urine Negative (Negative); Nitrite,Urine Negative (Negative); Protein,Urine Negative (Negative); Urine Appearance Clear (Clear); Urine Color Yellow (Yellow); Urine Urobilinogen 0.2 eU/dL (<2.0)
[2021-08-22 03:43] LABS: Barbiturates Screen,Urine Negative (Negative); Benzodiazepines Screen,Urine Negative (Negative); Cannabinoid Screen,Urine Negative (Negative); Opiate Screen,Urine Negative (Negative); Phencyclidine Screen,Urine Negative (Negative)
[2021-08-22] MEDS ORDERED: ONDANSETRON 4 MG/2 ML VIAL IV PRN (04:35)
[2021-08-22] MEDS ORDERED: GLUCAGON 1 MG VIAL IM PRN (04:35)
[2021-08-22] MEDS ORDERED: DEXTROSE 10% 250 ML BAG IV PRN (04:35)
[2021-08-22] MEDS ORDERED: hydrALAZINE 20 MG/1 ML VIAL IV PRN (04:35)
[2021-08-22] MEDS ORDERED: LORazepam 2 MG/1 ML VIAL IV PRN (04:35)
[2021-08-22] MEDS ORDERED: ACETAMINOPHEN 325 MG TABLET PO PRN (04:35)
[2021-08-22] MEDS ORDERED: LACTATED RINGERS 1,000 ML IV SCH (05:00)
[2021-08-22 06:40] VITALS: BP 131/80
[2021-08-22] MEDS ORDERED: NICOTINE 21 MG/24 HR PATCH TRANSDERM PRN (07:53)
[2021-08-22] MEDS ORDERED: amLODIPine 10 MG TABLET PO SCH (09:00)
[2021-08-22] MEDS ORDERED: CHOLECALCIFEROL 5,000 UNIT TABLET PO SCH (09:00)
[2021-08-22] MEDS ORDERED: ENOXAPARIN 40 MG/0.4 ML SYRINGE SUBCUT SCH (21:00)
[2021-08-22] MEDS ORDERED: ATORVASTATIN 10 MG TABLET PO SCH (21:00)
[2021-08-23] MEDS ORDERED: PANTOPRAZOLE 40 MG VIAL IV SCH (09:00)
[2021-08-23] MEDS ORDERED: THIAMINE INJ 100 MG, FOLIC ACID INJ 1 MG, MAGNESIUM SULF INJ 2 GM, MULTIVITAMIN INJ 10 ... IV SCH (09:00)
== END 2021-08-22 11:57 | disposition left against medical advice (07) ==
LOC: N.ED 01:09 → N.EDINP 01:09 → SUATTDRO 04:35 → N.EDINP 11:59
PROVIDERS: ADMIT Internal Medicine; ATTEND Internal Medicine